=== PATIENT | male | born 1975 | race African-American/Black ===

== ENCOUNTER 2021-04-30 18:58 | Emergency (ER) | payer MEDICAID, OTHER ==
[~2021-04-30] VITALS: Ht 175.3 cm; Wt 77.1 kg
[2021-05-01 00:28] VITALS: BP 130/85
== END 2021-05-01 02:12 | disposition home or self-care (01) ==
LOC: ER 19:01
DX: S02.2XXA Fracture of nasal bones, initial encounter for closed fracture (principal); S02.831A Fracture of medial orbital wall, right side, initial encounter for closed fracture; S02.31XA Fracture of orbital floor, right side, initial encounter for closed fracture; M48.8X2 Other specified spondylopathies, cervical region; Y04.2XXA Assault by strike against or bumped into by another person, initial encounter; Y93.89 Activity, other specified; Y92.89 Other specified places as the place of occurrence of the external cause; Y99.8 Other external cause status
CPT/HCPCS: 70450; 70486; 72125